=== PATIENT | female | born 1970 | race Two or more races ===

== ENCOUNTER 2018-02-03 05:45 | Day surgery (SDC) | payer OTHER ==
[~2018-02-03 05:45] MED LIST: ALLEGRA-D 24 H1 EACH PO; ALLEGRA60 M1; ESTRAD; OSEL75CA PO; PROGESTERONE100 MG PO; TRAMADOL HCL50 MG PO
[2018-02-03] MEDS ORDERED: DICLOFENAC SODI50 MG PO (11:14)
== END 2018-02-03 12:40 | disposition home or self-care (01) ==
LOC: CIR.AMB 05:45
DX: N80.0 Endometriosis of uterus (principal); N83.8 Other noninflammatory disorders of ovary, fallopian tube and broad ligament

== ENCOUNTER 2019-10-31 09:54 | Outpatient (CLI) | payer OTHER ==
[~2019-10-31 09:54] MED LIST changes: +DICLOFENAC SODI50 MG PO
== END 2019-10-31 10:10 | disposition home or self-care (01) ==
LOC: RAD 09:54
DX: M25.561 Pain in right knee (principal); M25.562 Pain in left knee
CPT/HCPCS: 73721

== ENCOUNTER → 2020-10-03 | Outpatient (CLI) | payer OTHER | END | disposition home or self-care (01) | LOC: RAD 08:31 | PROVIDERS: ATTEND Internal Medicine | DX: M79.642 Pain in left hand (principal); I10 Essential (primary) hypertension; Z01.810 Encounter for preprocedural cardiovascular examination; E03.8 Other specified hypothyroidism; E55.9 Vitamin D deficiency, unspecified; B97.89 Other viral agents as the cause of diseases classified elsewhere; A49.3 Mycoplasma infection, unspecified site; Z12.31 Encounter for screening mammogram for malignant neoplasm of breast ==

== ENCOUNTER 2023-02-09 10:05 | Outpatient (CLI) | payer OTHER | END 2023-02-09 10:30 | disposition home or self-care (01) | LOC: MRI 10:05 | PROVIDERS: ATTEND Orthopaedic Surgery | DX: S83.201A Bucket-handle tear of unspecified meniscus, current injury, left knee, initial encounter (principal); M25.561 Pain in right knee; M25.562 Pain in left knee | CPT/HCPCS: 73721 ==

== ENCOUNTER 2023-07-06 10:49 | Outpatient (CLI) | payer OTHER | END 2023-07-06 10:59 | disposition home or self-care (01) | LOC: RAD 10:49 | PROVIDERS: ATTEND Internal Medicine | DX: I10 Essential (primary) hypertension (principal); E03.9 Hypothyroidism, unspecified; E55.9 Vitamin D deficiency, unspecified; B97.89 Other viral agents as the cause of diseases classified elsewhere; A49.3 Mycoplasma infection, unspecified site; M79.641 Pain in right hand; M79.642 Pain in left hand; M67.843 Other specified disorders of tendon, right hand; M67.844 Other specified disorders of tendon, left hand; Z12.31 Encounter for screening mammogram for malignant neoplasm of breast ==